=== PATIENT | male | born 1940 | race Caucasian/White ===

== ENCOUNTER → 2017-07-20 | Outpatient (CLI) | payer MEDICARE ==
[~2017-07-20] MED LIST: ASPI325; CEFD300; HYDCHL25; SPIHYD; TRAVER2180; TRAVER4240
== END | disposition home or self-care (01) ==
LOC: PLD 11:01 → LAB SHORT 11:01
DX: D22.5 Melanocytic nevi of trunk (principal)
CPT/HCPCS: 88305